=== PATIENT | female | born 1965 | race African-American/Black ===

== ENCOUNTER 2018-08-16 02:18 | Emergency (ER) | payer MEDICARE, OTHER ==
[~2018-08-16] VITALS: Ht 172.7 cm; Wt 68.0 kg
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
--- NOTE | 2018-08-16 02:40 | NUR ---
TECH AT BEDSIDE FOR EKG.
--- NOTE | 2018-08-16 02:43 | NUR ---
UNABLE TO OBTAIN EKG D/T PT MOVING. AWARE.
--- NOTE | 2018-08-16 03:00 | NUR ---
PT REFUSING CHEST XRAY. MD AWARE.
[2018-08-16 03:06] LABS: BASOPHILS # (AUTO) 0.1 /CMM (0.0-0.2); EOSINOPHILS % (AUTO) 3.1 % (0.0-6.0); HEMATOCRIT 42 % (33-45); HEMOGLOBIN 14.4 g/dL (11.5-14.8); LYMPHOCYTES # (AUTO) 2.2 /CMM (0.8-4.8); LYMPHOCYTES % (AUTO) 32.1 % (20.0-44.0); MEAN CORPUSCULAR HGB CONC 34 g/dl (31.0-36.0); MEAN CORPUSCULAR VOLUME 95 fL (82-100); MONOCYTES # (AUTO) 0.5 /CMM (0.1-1.30); MONOCYTES % (AUTO) 7.9 % (2.0-12.0); NEUTROPHILS # (AUTO) 3.9 /CMM (1.8-8.9); NEUTROPHILS % (AUTO) 55.9 % (43.0-81.0); PLATELET COUNT (AUTO) 300 /CMM (150-450); RED BLOOD CELL COUNT(AUTO) 4.45 MIL/uL (4.0-5.2)
--- NOTE | 2018-08-16 03:06 | NUR ---
PT REFUSED EKG. AWARE.
--- NOTE | 2018-08-16 03:23 | NUR ---
PHLEB AT BEDSIDE FOR LAB REDRAW
[2018-08-16 03:52] LABS: ALCOHOL, BLOOD < 3 mg/dL (0-0); CALCIUM, SERUM 9.2 mg/dL (8.5-10.1); CARBON DIOXIDE 26 mmol/L (21-32); CHLORIDE 106 mmol/L (98-107); CREATININE 0.9 mg/dL (0.6-1.3); GLUCOSE 79 mg/dL (74-106); POTASSIUM 3.3 mmol/L (3.5-5.1); SODIUM SERUM 141 mmol/L (136-145); UREA NITROGEN, BLOOD 21 mg/dL (7-18)
--- NOTE | 2018-08-16 04:55 | NUR ---
RADIOLOGY AT BEDSIDE FOR XRAY
[2018-08-16 06:09] VITALS: BP 130/77
--- NOTE | 2018-08-16 06:20 | NUR ---
IV removed. Catheter intact and site benign. Pressure and 4x4 applied to site. No bleeding noted.Patient discharged to home in stable condition. Written and verbal after care instructions given. Patient verbalizes understanding of instruction.
== END 2018-08-16 06:28 | disposition home or self-care (01) ==
LOC: EDBD 02:20 → ER 02:20
DX: R07.89 Other chest pain (principal); M54.30 Sciatica, unspecified side; F17.200 Nicotine dependence, unspecified, uncomplicated; Z88.2 Allergy status to sulfonamides
CPT/HCPCS: 36415; 71045-TC; 80048-TC; 84484-TC; 85025-TC; 85730-TC; G0480